=== PATIENT | male | born 1975 | race Caucasian/White ===

== ENCOUNTER 2017-02-11 14:44 | Emergency (ER) | payer OTHER ==
[2017-02-11 15:03] LABS: Glucose,Whole Blood 143 mg/dL (75-99)
--- NOTE | 2017-02-11 15:51 | ED ---
Head Injury HPI - General Chief complaint: Head Injury Stated complaint: Fall Time Seen by Provider: 02/11/17 14:58 Source: EMS Mode of arrival: EMS Limitations: no limitations - History of Present Illness Initial comments: Is a 41-year-old male with no past medical history presents emergency Department after falling and hitting his head. He tripped and fell backwards hitting the back of his head on the head of the nail that was sticking out. He did have loss of consciousness briefly. He was able to get up and did not have any postictal episode afterwards. No shaking was noticed by coworkers. The patient stated that he had no symptoms prior to the fall and states that he just tripped. He denies any other injuries. No neck pain. No headache, nausea , or vomiting. No other complaints. - Related Data Home Medications Medication Instructions Recorded Confirmed No Known Home Medications [No 02/11/17 02/11/17 Known Home Medications] Allergies/Adverse reactions: Allergies Allergy/AdvReac Type Severity Reaction Status Date / Time No Known Allergies Allergy Unverified 02/11/17 15:18 Review of Systems ROS Statement: Those systems with pertinent positive or pertinent negative responses have been documented in the HPI. ROS Other: All systems not noted in ROS Statement are negative. Past Medical History Past Medical History: No Reported History History of Any Multi-Drug Resistant Organisms: None Reported Past Surgical History: No Surgical Hx Reported Past Psychological History: No Psychological Hx Reported Smoking Status: Never smoker Past Alcohol Use History: None Reported Past Drug Use History: None Reported General Exam - General Exam Comments Initial Comments: Constitutional: Awake alert Appears comfortable Head: No cephalic, there is a 7 cm laceration to the left parietal and occipital scalp bleeding is controlled Eyes: no conjunctival injection No scleral icterus EOMI, pupils are 4 mm and reactive bilaterally Neck: No JVD Supple Heart: Regular rate rhythm normal S1-S2 no murmurs Lungs: Clear to auscultation bilaterally No wheezing No rales Abdomen: Soft nondistended nontender Extremities: Non edematous DP pulses intact Radial pulses intact Neuro: A&Ox3 nerves II through XII are grossly intact, 5 out of 5 strength in upper and lower extremities bilaterally, no ataxia Psych: Appropriate mood and affect Limitations: no limitations Course Vital Signs 02/11/17 14:59 Temperature 97.6 F Pulse Rate 83 Respiratory 20 Rate Blood Pressure 146/89 O2 Sat by Pulse 93 L Oximetry Procedures - Laceration Laceration #1 Consent Obtained: verbal consent Indication: laceration Site: scalp Size (cm): 7 Description: linear Depth: simple, single layer Anesthetic Used: lidocaine 1% Anesthesia Technique: local infiltration Pre-repair: wound explored, irrigated extensively, deep structures intact Type of Sutures: nylon, other (Westley) Size of Sutures: 3-0 Number of Sutures: 4 (9 westley) Technique: simple, interrupted Patient Tolerated Procedure: well, no complications Medical Decision Making - Medical Decision Making Is a 41-year-old male who came in emergency Department after stumbling and hitting his head and sustaining loss of consciousness. Laceration was repaired at bedside. There were 4 sutures and 9 westley placed here the patient tolerated this well. CT of the head and cervical spine were unremarkable. The patient has been mentating normally in the emergency report. No nausea or vomiting. His last tetanus was within the last couple of years. At this time I feel the patient is okay to go home. I told him that he needs to have his sutures and westley removed in the next 5-7 days. He can return emergency Department if he has worsening symptoms including headache, nausea, vomiting, or mental status changes. All questions were answered. - Lab Data Lab Results 02/11/17 Range/Units 15:02 POC Glucose (mg/dL) 143 H (75-99) mg/dL POC [employer] ID Quin Tamayo Disposition Clinical Impression: Closed head injury, Scalp laceration Disposition: HOME SELF-CARE Condition: Stable Instructions: Laceration (ED) Additional Instructions: Make sure to get the westley and sutures removed in 5-7 days. There were 9 westley and 4 sutures. Monitor your symptoms for headache, nausea, vomiting, or mental status changes. Follow-up with her primary doctor. Return if you have worsening symptoms. Referrals: None,Stated [Primary Care Provider] - 1-2 days
--- NOTE | 2017-02-11 16:57 | CT ---
EXAMINATION TYPE: CT brain linda schumacher con DATE OF EXAM: 02/11/2017 4:52 PM COMPARISON: NONE HISTORY: Syncopal episode, patient fell and hit head (left posterior) on nail. CT DLP: 1835.[address] Brain: Unenhanced CT of the brain was performed. The ventricles, basal cisterns and sulci overlying the cerebral convexities demonstrate a normal appe arance. There is no evidence for intracranial hemorrhage or sulcal effacement. No mass effects are seen. If symptoms persist consider MRI. Osseous calvarium is intact. Left parietal scalp hematoma and laceration. IMPRESSION: No acute intracranial process CT Cervical Spine: Unenhanced CT of the cervical spine was performed with bone and soft tissue window settings submitted . Coronal and sagittal reconstruction is obtained. There is normal alignment and prevertebral soft tissues. I do not see evidence for fracture or sublu xation. No significant degenerative changes are present. The lung apices are clear. IMPRESSION: No evidence for acute fracture or subluxation of the cervical spine.
[2017-02-11 17:59] VITALS: BP 137/91; PULSE 82; RESP 18; TEMP 98
== END 2017-02-11 17:59 | disposition home or self-care (01) ==
LOC: EC 14:44
DX: S01.01XA Laceration without foreign body of scalp, initial encounter (principal); W01.10XA Fall on same level from slipping, tripping and stumbling with subsequent striking against unspecified object, initial encounter
CPT/HCPCS: 12002; 36415; 70450; 72125; 99284